=== PATIENT | male | born 1990 | race Caucasian/White ===

== ENCOUNTER 2021-02-10 14:57 | Inpatient (IN) | payer OTHER ==
[2021-02-10 16:57] VITALS: BMI 22.7
[2021-02-10] MEDS ORDERED: MENTHOL/PHENOL 1 EACH UD MM PRN (17:32)
[2021-02-10] MEDS ORDERED: BISMUTH SUBSALICYLATE 524 MG/30 ML UD PO PRN (17:32)
[2021-02-10] MEDS ORDERED: ACETAMINOPHEN 325 MG TABLET (FP) PO PRN ×2 (17:32)
[2021-02-10] MEDS ORDERED: ONDANSETRON *ODT* 4 MG TABLET SL PRN (17:32)
[2021-02-10] MEDS ORDERED: MAGNESIUM HYDROX 2400MG/30ML ORAL SUSPENSION 30 ML CUP PO PRN (17:32)
[2021-02-10] MEDS ORDERED: MAG HYDROX/AL HYDROX/SIMETH 30 ML UNIT-DOSE CUP PO PRN (17:32)
[2021-02-10] MEDS ORDERED: MAGNESIUM CITRATE 300 ML BOTTLE PO PRN (17:32)
[2021-02-10] MEDS ORDERED: cloNIDine HCL 0.1 MG TABLET PO PRN (19:00)
[2021-02-10] MEDS ORDERED: METHADONE HCL 10 MG TABLET (FOR DETOX USE ONLY) PO ONE (19:00)
[2021-02-10] MEDS: METHOCARBAMOL 500 MG TABLET PO PRN (19:30)
[2021-02-10] MEDS: IBUPROFEN 400 MG TABLET (FP) PO PRN (21:16)
[2021-02-10] MEDS: THIAMINE HCL 100 MG TABLET (FP) PO SCH (21:17)
[2021-02-10] MEDS ORDERED: MELATONIN 5 MG TABLETS PO SCH (22:00)
[2021-02-11] MEDS ORDERED: METHADONE HCL 5 MG TABLET (FOR DETOX USE ONLY) ONE (08:57)
[2021-02-11] MEDS ORDERED: METHADONE HCL 10 MG TABLET (FOR DETOX USE ONLY) ONE (08:57)
[2021-02-11] MEDS: diazePAM 5 MG TABLET PO PRN ×3 (09:43→21:41)
[2021-02-11] MEDS: PRENATAL VITAMINS W/ FOLIC ACID TABLET (FP) PO SCH (09:45)
[2021-02-11] MEDS ORDERED: METHADONE (DETOX) 20 MG, METHADONE (DETOX) 5 MG PO ONE (10:00)
[2021-02-11 10:10] LABS: POTASSIUM 4.2 mmol/L (3.5-5.1)
[2021-02-11 10:11] LABS: HEMATOCRIT 33.1 % (35.4-49); HEMOGLOBIN 11.5 GM/dL (11.7-16.9); MCH 27.8 pg (25.7-33.7); MCHC 34.7 g/dl (32.0-35.9); MEAN CELL VOLUME 80.1 fl (80-96); MEAN PLT VOLUME 7.7 fl (7.5-11.1); PLATELET COUNT 252 K/MM3 (134-434); RBC 4.13 M/mm3 (4.00-5.60); RDW 13.2 % (11.9-15.9); WHITE BLOOD COUNT 7.1 K/mm3 (4.0-10.0)
[2021-02-11 10:14] LABS: ALBUMIN 3.2 g/dl (3.4-5.0); BLOOD UREA NITROGEN 10.2 mg/dL (7-18)
[2021-02-11 10:16] LABS: CREATININE 0.9 mg/dL (0.55-1.3)
[2021-02-11 10:18] LABS: BILIRUBIN,TOTAL 0.2 mg/dL (0.2-1); TOT PROT 6.4 g/dl (6.4-8.2)
[2021-02-11] MEDS: GABAPENTIN 100 MG CAPSULE PO PRN ×2 (10:59→21:41)
[2021-02-11 11:54] LABS: HIV INTERPRETATION NEGATIVE (NEGATIVE)
[2021-02-11] MEDS: NICOTINE POLACRILEX 2 MG GUM BUC PRN (12:25)
[2021-02-11] MEDS: METHOCARBAMOL 500 MG TABLET PO PRN (15:24)
[2021-02-11] MEDS: SUVOREXANT 10 MG TABLET PO PRN (21:40)
[2021-02-11] MEDS: THIAMINE HCL 100 MG TABLET (FP) PO SCH (21:40)
[2021-02-12] MEDS ORDERED: METHADONE HCL 10 MG TABLET (FOR DETOX USE ONLY) PO ONE (10:00)
[2021-02-12] MEDS: PRENATAL VITAMINS W/ FOLIC ACID TABLET (FP) PO SCH (10:03)
[2021-02-12] MEDS: diazePAM 5 MG TABLET PO PRN ×3 (10:04→22:03)
[2021-02-12] MEDS: GABAPENTIN 100 MG CAPSULE PO PRN ×2 (11:08→22:03)
[2021-02-12] MEDS: METHOCARBAMOL 500 MG TABLET PO PRN ×2 (11:08→22:03)
[2021-02-12] MEDS: NICOTINE POLACRILEX 2 MG GUM BUC PRN (12:21)
[2021-02-12] MEDS: NICOTINE 21 MG/24 HOURS TOPICAL PATCH TD SCH (13:24)
[2021-02-12] MEDS: SUVOREXANT 10 MG TABLET PO PRN (22:02)
[2021-02-12] MEDS: THIAMINE HCL 100 MG TABLET (FP) PO SCH (22:03)
[2021-02-13] MEDS: diazePAM 5 MG TABLET PO PRN ×3 (05:27→22:03)
[2021-02-13] MEDS: METHOCARBAMOL 500 MG TABLET PO PRN ×3 (05:29→22:02)
[2021-02-13 06:08] LABS: SARS-CoV-2 NAA Not Detected (Not Detected)
[2021-02-13] MEDS ORDERED: METHADONE HCL 10 MG TABLET (FOR DETOX USE ONLY) ONE ×2 (08:55→10:17)
[2021-02-13] MEDS ORDERED: METHADONE HCL 5 MG TABLET (FOR DETOX USE ONLY) ONE ×2 (08:56→10:18)
[2021-02-13] MEDS ORDERED: METHADONE (DETOX) 10 MG, METHADONE (DETOX) 5 MG PO ONE (10:00)
[2021-02-13] MEDS: PRENATAL VITAMINS W/ FOLIC ACID TABLET (FP) PO SCH (10:12)
[2021-02-13] MEDS: NICOTINE 21 MG/24 HOURS TOPICAL PATCH TD SCH (10:12)
[2021-02-13] MEDS: GABAPENTIN 100 MG CAPSULE PO PRN (22:02)
[2021-02-13] MEDS: SUVOREXANT 10 MG TABLET PO PRN (22:02)
[2021-02-13] MEDS: THIAMINE HCL 100 MG TABLET (FP) PO SCH (22:03)
[2021-02-14] MEDS: diazePAM 5 MG TABLET PO PRN (08:04)
[2021-02-14] MEDS: PRENATAL VITAMINS W/ FOLIC ACID TABLET (FP) PO SCH (09:47)
[2021-02-14] MEDS: NICOTINE 21 MG/24 HOURS TOPICAL PATCH TD SCH (09:47)
[2021-02-14] MEDS: METHOCARBAMOL 500 MG TABLET PO PRN ×2 (09:48→16:38)
[2021-02-14] MEDS ORDERED: METHADONE HCL 10 MG TABLET (FOR DETOX USE ONLY) PO ONE (10:00)
[2021-02-14] MEDS: GABAPENTIN 100 MG CAPSULE PO PRN ×2 (15:24→22:08)
[2021-02-14] MEDS: IBUPROFEN 400 MG TABLET (FP) PO PRN (17:46)
[2021-02-14] MEDS ORDERED: SUVOREXANT 10 MG TABLET PO PRN (22:00)
[2021-02-14] MEDS: THIAMINE HCL 100 MG TABLET (FP) PO SCH (22:08)
[2021-02-15] MEDS ORDERED: METHADONE HCL 5 MG TABLET (FOR DETOX USE ONLY) PO ONE (06:00)
[2021-02-15] MEDS: GABAPENTIN 100 MG CAPSULE PO PRN (08:53)
[2021-02-15 09:00] VITALS: BP 118/78; PULSE 77; TEMP 96.9
[2021-02-15] MEDS: PRENATAL VITAMINS W/ FOLIC ACID TABLET (FP) PO SCH (10:01)
[2021-02-15] MEDS: NICOTINE 21 MG/24 HOURS TOPICAL PATCH TD SCH (10:01)
== END 2021-02-15 09:40 | disposition home or self-care (01) | DRG 773 ==
LOC: YASAS 14:57 → Y3N 17:52
PROVIDERS: ADMIT Allergy & Immunology; ATTEND Allergy & Immunology
PROC: HZ2ZZZZ Detoxification Services for Substance Abuse Treatment (ICD-10-PCS; principal; 2021-02-10)
DX: F11.23 Opioid dependence with withdrawal (principal); F14.20 Cocaine dependence, uncomplicated; F12.20 Cannabis dependence, uncomplicated; F17.210 Nicotine dependence, cigarettes, uncomplicated; F19.280 Other psychoactive substance dependence with psychoactive substance-induced anxiety disorder; F19.282 Other psychoactive substance dependence with psychoactive substance-induced sleep disorder; M54.5 Low back pain; G89.29 Other chronic pain
CPT/HCPCS: 36415; 80053; 85027; 86780; 87389; 93005; 93010; C9803; U0003; U0005